=== PATIENT | male | born 1930 | race Caucasian/White ===

== ENCOUNTER 2020-12-29 12:46 | Outpatient (RCR) | payer MEDICARE | END 2021-02-20 15:42 | disposition home or self-care (01) | LOC: WSC 12:46 | DX: R29.6 Repeated falls (principal) ==

== ENCOUNTER 2021-03-24 12:19 | Emergency (ER) | payer MEDICARE ==
[~2021-03-24] VITALS: Ht 180.3 cm; Wt 59.1 kg
[2021-03-24 12:46] VITALS: TEMP 97.7
[2021-03-24 14:04] VITALS: BP 118/66; PULSE 51
== END 2021-03-24 14:04 | disposition home or self-care (01) ==
LOC: COL.ER 12:19
DX: M25.512 Pain in left shoulder (principal); W22.01XA Walked into wall, initial encounter

== ENCOUNTER 2021-05-27 10:25 | Emergency (ER) | payer MEDICARE ==
[2021-05-27 10:32] VITALS: BP 120/88; PULSE 97; TEMP 98.8
[2021-05-27 11:27] LABS: BASO % 0.4 % (0.0-2.0); EOS % 0.3 % (0-4.0); GRAN # 9.6 (1.4-6.5); GRAN % 84.8 % (42.2-75.2); HEMOGLOBIN 10.7 g/dl (13.5-18.0); LYMPH # 0.8 (1.2-3.4); LYMPH % 7.4 % (20.0-51.0); MEAN CELL VOLUME 83 fl (80.0-100.0); MEAN CORPUSCULAR HEMOGLOBIN 26 pg (27.0-31.0); MEAN CORPUSCULAR HGB CONC 31 g/dl (33.0-37.0); MEAN PLATELET VOLUME 9.9 fl (7.4-10.4); MONO # 0.8 (0.1-0.6); MONO % 6.7 % (1.7-9.3); PLATELET COUNT 280 K/mm3 (130-400); RED BLOOD COUNT 4.17 M/mm3 (4.20-5.60); REDCELL DISTRIBUTION WIDTH-CV 17.9 % (11.5-14.5)
[2021-05-27 11:34] LABS: HEMATOCRIT 34.6 % (42.0-52.0)
[2021-05-27 12:17] LABS: ALBUMIN 2.6 gm/dL (3.4-4.8); BILIRUBIN,TOTAL 0.7 mg/dL (0.2-1.2); C-REACTIVE PROTEIN 7.3 mg/dL (0.00-0.50); CALCIUM 8.8 mg/dL (8.4-10.2); CREATININE, serum 0.73 mg/dL (0.72-1.25); POTASSIUM 4.8 mmol/L (3.5-4.5); TOTAL PROTEIN 6.9 gm/dL (6.2-8.1)
[2021-05-27] MEDS ORDERED: DOXYCYCLINE 10100 MG PO (12:31)
== END 2021-05-27 13:00 | disposition home or self-care (01) ==
LOC: COL.ER 10:25
PROVIDERS: Nurse Practitioner
DX: L89.159 Pressure ulcer of sacral region, unspecified stage (principal); I25.10 Atherosclerotic heart disease of native coronary artery without angina pectoris; F03.90 Unspecified dementia, unspecified severity, without behavioral disturbance, psychotic disturbance, mood disturbance, and anxiety